=== PATIENT | male | born 1965 | race Caucasian/White ===

== ENCOUNTER 2019-02-09 02:35 | Emergency (ER) | payer OTHER ==
[~2019-02-09] VITALS: Ht 182.9 cm; Wt 113.4 kg
[2019-02-09] MEDS ORDERED: ONDANSETRON HCL 4 MG/2 ML VIAL ONE (03:41)
[2019-02-09] MEDS ORDERED: MORPHINE SULF INJ 2 MG/ML SYRINGE 1ML ONE (03:41)
[2019-02-09 04:00] LABS: Urine WBC None Seen /hpf (0 - 3)
[2019-02-09 04:15] LABS: Urine Bacteria NONE SEEN /hpf (None Seen); Urine Blood Negative /uL (Negative); Urine Specific Gravity 1.033 (1.001-1.035)
[2019-02-09] MEDS ORDERED: ONDANSETRON HCL 4 MG/2 ML VIAL IV ONE (04:45)
[2019-02-09] MEDS ORDERED: MORPHINE SULFATE 4 MG/ML SYR/VIAL IV ONE (04:45)
[2019-02-09] MEDS ORDERED: HYDROcodone-ACET 10/325MG TAB PO ONE (06:45)
[2019-02-09] MEDS ORDERED: HYDROcodone-ACET 5/325MG TAB PO ONE (07:00)
[2019-02-09 07:25] VITALS: BP 144/89
== END 2019-02-09 07:46 | disposition home or self-care (01) ==
LOC: EDBD 02:35 → ER 02:40
DX: S82.002A Unspecified fracture of left patella, initial encounter for closed fracture (principal); X58.XXXA Exposure to other specified factors, initial encounter; Y93.89 Activity, other specified; Y99.8 Other external cause status; Y92.89 Other specified places as the place of occurrence of the external cause
CPT/HCPCS: 29505; 73562; 81001; 96374; 96375; 99283; J2270; J2405

== ENCOUNTER 2021-02-05 13:21 | Emergency (ER) | payer OTHER ==
[~2021-02-05] VITALS: Ht 182.9 cm; Wt 108.9 kg
[2021-02-05] MEDS ORDERED: MORPHINE SULFATE INJECTION 2 MG/ML SYRG IM ONE (14:00)
[2021-02-05] MEDS ORDERED: ONDANSETRON ODT 4 MG TAB PO ONE (14:00)
[2021-02-05 14:22] VITALS: BP 140/96
== END 2021-02-05 14:25 | disposition home or self-care (01) ==
LOC: ER 13:21
DX: S22.41XA Multiple fractures of ribs, right side, initial encounter for closed fracture (principal); J18.9 Pneumonia, unspecified organism; F17.210 Nicotine dependence, cigarettes, uncomplicated; J43.2 Centrilobular emphysema; I10 Essential (primary) hypertension; I25.2 Old myocardial infarction; I25.10 Atherosclerotic heart disease of native coronary artery without angina pectoris; W01.0XXA Fall on same level from slipping, tripping and stumbling without subsequent striking against object, initial encounter; Y93.89 Activity, other specified; Y92.89 Other specified places as the place of occurrence of the external cause; Y99.8 Other external cause status
CPT/HCPCS: 71250; 96372; 99284; J2270; Q0162